=== PATIENT | female | born 1945 | race Caucasian/White ===

== ENCOUNTER → 2017-11-22 | Outpatient (CLI) | payer MEDICARE, OTHER ==
[~2017-11-22] MED LIST: AMITRIPTYLINE H10 MG PO; ASTELIN137 MCG; FENOFIBRATE PO; FLONASE16 GM; HYDROCODONE PO; LIPITOR PO; LIPITOR20 MG PO; LISINOPRIL PO; MAGNESIUM PO; MECLIZINE HCL12.5 MG PO; MELOXICAM PO; MOBIC15 MG PO; NEURONTIN100 MG PO; NORCO 10MG-325MG1 EA PO; NYSTATIN15 G2 TP; OSTEO BI-FLEX1 EAC2 PO; PANTOPRAZOLE SO40 MG PO; PROAIR HFA INH8.5 GM INH; PROTONIX PO; SERTRALINE HCL100 MG PO; SYNTHROID100 MCG PO; VALIUM5 MG PO
--- NOTE | 2017-11-22 13:22 | Diagnostic Imaging Report ---
PROCEDURE: Frontal and lateral views of the chest. COMPARISON: Patients [facility], , CHEST 2 VIEWS, 05/31/2017, 14:13. INDICATIONS: MALIGNANT NEOPLASM OF KIDNEY FINDINGS: Lines/tubes: None. Lungs: The lungs are well inflated and clear. There is no evidence of pneumonia or pulmonary edema. Pleura: There is no pleural effusion or pneumothorax. Heart and mediastinum: The heart and the mediastinum are normal. Bones: No acute bony abnormality. Bilateral calcified breast implants. Mild spondylosis of the thoracic spine. Remote healed fracture of the posterolateral right eighth rib. IMPRESSION: 1. No acute cardiopulmonary disease. Ben Rick M.D. Dictated by: Ben Rick M.D. on 11/22/2017 at 13:25 Electronically approved by: Ben Rick M.D. on 11/22/2017 at 13:25
--- NOTE | 2017-11-22 13:25 | Diagnostic Imaging Report ---
PROCEDURE:US RETROPERITONEAL ( KIDNEY ). COMPARISON:Renal ultrasound 05/31/2017. INDICATIONS:malignant neoplasm of kidney TECHNIQUE: Cedillo-scale and color sonographic images of the bilateral kidneys and bladder where obtained in transverse and longitudinal planes. FINDINGS: RIGHT KIDNEY: Status post right nephrectomy. No abnormal soft tissue in the renal fossa. LEFT KIDNEY: 12.3 cm, 2 cm cortical thickness. Cysts: As before, there is a cluster of 3 adjacent simple cysts in the lower pole measuring 2.3 x 1.9 x 2.1 cm (previously 2.4 x 2 x 1.9 cm); 2.3 x 2.5 x 2.1 cm (previous 2.3 x 2.6 x 2.1 cm); 2.1 x 1.4 x 1.4 cm (previously 2.5 x 1.5 x 1.6 cm). An additional upper pole cyst measures 1.4 x 1.4 x 1.9 cm (previously 1.4 x 1.4 x 1.7 cm). Solid masses: None Stones: None Hydronephrosis: None Echogenicity: Normal renal cortical echogenicity. Bladder: Unremarkable. Left ureteral jet is identified. CONCLUSION: Status post right nephrectomy. No evidence of residual or recurrent disease. Stable simple left renal cysts as above Dictated by: Buck Sanchez M.D. on 11/22/2017 at 13:27 Electronically approved by: Buck Sanchez M.D. on 11/22/2017 at 13:27
== END ==
LOC: US 11:47
PROVIDERS: ATTEND Urology
DX: C64.9 Malignant neoplasm of unspecified kidney, except renal pelvis (principal)
CPT/HCPCS: 71046; 76770

== ENCOUNTER → 2018-05-31 | Outpatient (CLI) | payer MEDICARE, OTHER ==
--- NOTE | 2018-05-31 11:41 | Diagnostic Imaging Report ---
EXAMINATION: PA and lateral views of the chest. COMPARISON: None CLINICAL HISTORY: Renal cell carcinoma, surveillance DISCUSSION: The lungs are well-inflated. No focal airspace consolidation, pleural effusion, or pneumothorax. Bilateral breast implants slightly obscure the lower lungs zones. Cardiomediastinal contour and pulmonary vasculature are within normal limits. Surgical clips project over the lower cervical region No acute osseous abnormality. Surgical clips are projecting anterior to the vertebral column, partially visualized on the lateral radiograph, presumably related to prior nephrectomy or partial nephrectomy. IMPRESSION: No acute cardiopulmonary abnormalities. Signed by: Dr. Buck Sanchez M.D. on 05/31/2018 11:38 AM
--- NOTE | 2018-05-31 11:51 | Diagnostic Imaging Report ---
EXAMINATION: Renal ultrasound. CLINICAL HISTORY :Renal cell carcinoma, prior right nephrectomy COMPARISON: 11/22/2017 TECHNIQUE: Grayscale and color Doppler evaluation of the kidneys and bladder was performed in transverse and longitudinal planes. DISCUSSION: RIGHT KIDNEY: Absent. No abnormal soft tissue in the right renal fossa. LEFT KIDNEY: 12.4 cm in length, cortical thickness 1.9 cm As before, there is a cluster of 3 simple cysts in the lower pole measuring 2 x 1.9 x 2.4 cm (previously 2.3 x 1.9 x 2.1 cm), 1.9 x 1.8 x 2.8 cm (previously 2.3 x 2.5 x 2.1 cm and 1.4 x 1 x 1 cm (previously 2.1 x 1.4 x 1.4 cm). An additional upper pole cyst measures 1.3 x 1.5 x 1.1 cm (previously 1.4 x 1.4 x 1.9 cm). No solid mass lesion, shadowing calculus, or hydronephrosis. BLADDER: Unremarkable. No ureteral jet is appreciated likely related to scan timing IMPRESSION: Status post right nephrectomy. No evidence of residual or recurrent disease. Multiple simple left renal cysts are stable to marginally decreased in size as described above. Signed by: Dr. Buck Sanchez M.D. on 05/31/2018 11:48 AM
== END ==
LOC: US 10:00
PROVIDERS: ATTEND Urology
DX: C64.9 Malignant neoplasm of unspecified kidney, except renal pelvis (principal)
CPT/HCPCS: 71046; 76770

== ENCOUNTER → 2018-12-10 | Outpatient (CLI) | payer MEDICARE ==
--- NOTE | 2018-12-10 12:44 | Diagnostic Imaging Report ---
EXAM: CHEST 2 VIEWS, PA and lateral DATE: 12/10/2018 Time stamp on exam: 11:58 AM INDICATION: History of renal cancer COMPARISON: 05/31/2018 FINDINGS: LINES/TUBES: Clips in the neck. LUNGS: No consolidations or edema. There are no pulmonary nodules. PLEURA: No effusions or pneumothorax. HEART AND MEDIASTINUM: Normal size and contour. BONES AND SOFT TISSUES: No acute findings. Calcified bilateral breast implants. Degenerative changes of the spine are mild. IMPRESSION: No acute thoracic abnormality. Signed by: Dr. Geovanny Ibrahim DO on 12/10/2018 12:41 PM
--- NOTE | 2018-12-10 14:10 | Diagnostic Imaging Report ---
Renal ultrasound. History: History of nephrectomy for renal cancer. Comparison: 05/31/2018. Discussion: Transverse and longitudinal images of the left kidney was obtained demonstrating kidney measuring 12.4 x 6.0 x 5.7 cm. Maximal cortical thickness is 1.7 cm. Several cysts are present in the left kidney. Superior pole cyst measures 1.4 x 1.5 x 1.6 (previous measurement 1.3 x 1.5 x 1.1 cm). In the inferior pole there are a cluster of three cysts showing slight enlargement by 6, 5 and 3 mm. Right nephrectomy bed is normal without evidence of mass. The urinary bladder is unremarkable. There is no evidence of free fluid. IMPRESSION: 1. Multiple cysts in the left kidney; all showing slight enlargement. 2. Status post right nephrectomy without residual mass in the nephrectomy bed. Signed by: Dr. Geovanny Ibrahim DO on 12/10/2018 2:07 PM
== END ==
LOC: US 11:40
PROVIDERS: ATTEND Urology
DX: C64.1 Malignant neoplasm of right kidney, except renal pelvis (principal); N28.1 Cyst of kidney, acquired
CPT/HCPCS: 71046; 76770